=== PATIENT | female | born 1965 | race African-American/Black ===

== ENCOUNTER 2016-11-06 08:03 | Emergency (ER) | payer SELFPAY ==
[~2016-11-06] VITALS: Ht 167.6 cm; Wt 75.0 kg
[2016-11-06 08:05] VITALS: BP 187/98; PULSE 87; RESP 15; TEMP 98.4; O2SAT 98
--- NOTE | 2016-11-06 08:38 | PD ---
HPI Chief Complaint: Injury Time Seen by Provider: 08:38 Travel History International Travel<30 days: No Contact w/Intl Traveler<30days: No Traveled to known affect area: No History of Present Illness HPI 51-year-old female presents to emergency Department with complaint of right upper back pain 3 weeks. Thinks she may have strained her muscle by picking up a box. Denies paresthesias, loss of sensation, decreased range of motion, decreased strength to right upper extremity. Denies fever, vomiting. Denies rash. Pain is aggravated with movement and palpation. Has been taking Aleve for symptom management. Symptoms are mild in severity. No known allergies. Has no other medical complaints. No other modifying factors or associated signs and symptoms. PFSH Past Medical History ?: Not Past Surgical History Other Surgery: Yes (fibroid tumor removed) Social History Alcohol Use: No Tobacco Use: No Substance Use: No Allergies-Medications (Allergen,Severity, Reaction): Coded Allergies: No Known Allergies (Verified Allergy, Unknown, 11/06/16) Reported Meds & Prescriptions Reported Meds & Active Scripts Active Ibuprofen 800 Mg Tab 800 Mg PO Q6HR PRN Robaxin (Methocarbamol) 500 Mg Tab 500 Mg PO QID PRN Review of Systems Except as stated in HPI: all other systems reviewed are Neg Physical Exam Narrative GENERAL: Well-nourished, well-developed female patient, in no acute distress SKIN: Warm and dry. HEAD: Atraumatic. Normocephalic. EYES: Pupils equal and round. No scleral icterus. No injection or drainage. ENT: Mucosa pink and moist. Airway patent. NECK: Trachea midline. CARDIOVASCULAR: Regular rate. RESPIRATORY: No accessory muscle use. GASTROINTESTINAL: Flat. MUSCULOSKELETAL: Right upper extremity supple and nontender 2+ radial pulse and sensory intact without erythema or edema; with full range of motion and strength. No obvious deformities. No clubbing. No cyanosis. No edema. BACK: No point tenderness on palpation of the thoracic spine. Reproducible tenderness to the trapezius musculature of the right upper back. No rash noted. NEUROLOGICAL: Awake and alert. Oriented 3. No obvious cranial nerve deficits. Motor grossly within normal limits. Normal speech. PSYCHIATRIC: Appropriate mood and affect; insight and judgment normal. Data Data Last Documented VS Vital Signs Date Time Temp Pulse Resp B/P (MAP) Pulse Ox O2 Delivery O2 Flow Rate FiO2 11/06/16 08:05 98.4 87 15 187/98 (127) 98 Orders Orders Methocarbamol (Robaxin) (11/06/16 08:45) MDM Medical Decision Making Medical Screen Exam Complete: Yes Emergency Medical Condition: Yes Medical Record Reviewed: Yes Differential Diagnosis Trapezius muscle strain, muscle spasm, shingles Narrative Course 51-year-old female history of present illness and physical exam consistent with strain of right trapezius muscle. Robaxin and ibuprofen administered in the ER. Robaxin and ibuprofen prescribed for home. Instructed patient to follow up with primary care provider. Patient verbalizes understanding and agreement with treatment plan. Patient is medically cleared and stable for discharge. Discussed reasons to return to the emergency department. Patient agrees with treatment plan. The patients vital signs are stable and the patient is stable for outpatient follow-up and treatment. Patient discharged home, stable and in no acute distress. Diagnosis Primary Impression: Strain of right trapezius muscle Qualified Codes: S46.811A - Strain of other muscles, fascia and tendons at shoulder and upper arm level, right arm, initial encounter Referrals: [facility] Primary Care Physician Patient Instructions: General Instructions, Muscle Spasm (ED), Muscle Strain ( ED) Departure Forms: Tests/Procedures, Work Release Enter return to work date: Nov 09, 2016 Additional Instructions: Tylenol or ibuprofen as directed and as needed for pain Robaxin as prescribed and as needed for muscle spasms Heating pad and/or ice to affected area to reduce pain Avoid aggravating activities; increase activity as tolerated Follow-up with primary care provider Return to emergency department immediately with worsening of symptoms Med/Other Pt SpecificInfo: Prescription(s) given Scripts Ibuprofen (Ibuprofen) 800 Mg Tab 800 MG PO Q6HR Y for PAIN, #30 TAB 0 Refills Prov: Africa Leung 11/06/16 Methocarbamol (Robaxin) 500 Mg Tab 500 MG PO QID Y for MUSCLE SPASM, #30 TAB 0 Refills Prov: Africa Leung 11/06/16 Disposition: 01 DISCHARGE HOME Condition: Stable Africa Leung Nov 06, 2016 08:38
[2016-11-06] MEDS ORDERED: ROBA500T PO (08:41)
[2016-11-06] MEDS ORDERED: IBUP800T23 PO (08:41)
[2016-11-06] MEDS ORDERED: METHOCARBAMOL 500 MG TAB PO ONE (08:45)
== END 2016-11-06 09:03 | disposition home or self-care (01) ==
LOC: NEPK 08:03
DX: S46.911A Strain of unspecified muscle, fascia and tendon at shoulder and upper arm level, right arm, initial encounter (principal); X50.0XXA Overexertion from strenuous movement or load, initial encounter
CPT/HCPCS: 99283